=== PATIENT | male | born 2005 | race Two or more races ===

== ENCOUNTER 2024-08-21 11:27 | Emergency (ER) | payer MEDICAID, SELFPAY ==
[2024-08-21 11:28] VITALS: BMI 34.8
[2024-08-21 11:50] VITALS: BP 136/72; PULSE 89; RESP 18; TEMP 36.9; O2SAT 100
--- NOTE | 2024-08-21 11:53 | XR_ITS ---
Examination: Hand, right 3 views Technique: Hand AP, oblique, lateral 3 views Date and time of exam: August 21, 2024, 12:08 PM INDICATIONS: Patient fell today with injury to the hand, hand pain FINDINGS: Acute fracture proximal to mid shaft fourth metacarpal, no significant displacement No opaque foreign body IMPRESSION: Acute fracture fourth metacarpal
[2024-08-21] MEDS: IBUPROFEN TAB 400 MG TABLET 800 MG PO (12:15)
--- NOTE | 2024-08-21 12:33 | EDNOTE_ITS ---
<Statement entered by Jeannine Cates MD - 08/21/24 13:55> As co-signing physician, I was present and available for consult prn. I concur with the plan and care as documented by the midlevel provider. Upper Extremity Injury RME/HPI General Chief Complaint: Fall Stated Complaint: FALL YESTERDAY, HURT R) HAND AT 4TH/5TH DIGITS Time Seen by Provider: 08/21/24 11:29 Arrival date/time: 08/21/24 11:27 19-year-old male presents emergency department today send he was in a bounce house yesterday and injured his right hand patient reports his fourth and fifth digit is where he has pain. There are no other associated symptoms or aggravating factors no other modifying factors, patient denies taking medication before coming to ER today Limitations: no limitations Related Data Previous Rx's ?Medication ?Instructions ?Recorded diphenhydramine HCl 12.5 mg/5 mL 10 ml PO Q4-6HRPRN ## 1 10/09/11 oral liquid (Children's Benadryl Allergy) omeprazole 20 mg capsule,delayed 20 mg PO QDAY ##30 release ibuprofen 600 mg tablet 600 mg PO Q8H PRN fever #14 tabs 07/27/17 hydrocodone 5 mg-acetaminophen 325 1 tab PO BID PRN pa in #10 tabs 08/21/24 mg tablet ibuprofen 800 mg tablet 800 mg PO TID PRN pain #30 t abs 08/21/24 Allergies Allergy/AdvReac Type Severity Reaction Status Date / Time No Known Allergies Allergy Verified 08/21/24 11:30 Review of Systems Review of Systems Systems Reviewed: All systems reviewed, normal except as documented Constitutional Constitutional: Reports system reviewed and no additional complaints, except as documented, Denies fever(s) and Denies headache(s) Eyes Eyes: Reports system reviewed and no additional complaints, except as documented and Denies blurry vision ENT Ears, Nose, Mouth, and Throat: Reports system reviewed and no additional complaints, except as documented, Denies headache(s), Denies nasal congestion and Denies nasal discharge Cardiovascular Cardiovascular: Reports system reviewed and no additional complaints, except as documented, Denies chest pain and Denies dyspnea Respiratory Respiratory: Reports system reviewed and no additional complaints, except as documented, Denies chest congestion, Denies cough and Denies dyspnea Gastrointestinal Gastrointestinal: Reports system reviewed and no additional complaints, except as documented and Denies abdominal pain Musculoskeletal Musculoskeletal: Reports system reviewed and no additional complaints, except as documented, Reports arthralgias, Denies deformity, Reports joint swelling, Denies numbness, Reports stiffness and Denies tingling Integumentary/Breasts Skin/Breast: Reports system reviewed and no additional complaints, except as documented and Denies rash Neurologic Neurologic: Reports system reviewed and no additional complaints, except as documented, Reports as per HPI, Denies headache(s), Denies numbness and Denies tingling Past Medical History Social History SMOKING STATUS: Never smoker ED Exam General Limitations: Present no limitations General appearance: Present alert and in no apparent distress Head Head exam: Present atraumatic, normocephalic and normal inspection Eye Eye exam: Present normal appearance, PERRL and EOMI; Absent conjunctival injection ENT ENT exam: Present normal exam, normal oropharynx and mucous membranes moist Neck Neck exam: Present normal inspection, full ROM and trachea midline Chest Chest inspection: Present normal inspection and symmetric chest wall rise Respiratory Respiratory exam: Present normal lung sounds bilaterally; Absent respiratory distress Cardiovascular Cardiovascular exam: Present regular rate, normal rhythm and normal heart sounds Abdominal Exam Abdominal exam: Present soft and normal bowel sounds Extremities Exam Extremities exam: Present full ROM, tenderness, normal capillary refill and joint swelling Back Exam Back exam: Present normal inspection and full ROM Neurological Exam Neurological exam: Present alert, oriented X3 and CN II-XII intact Psychiatric Psychiatric exam: Present normal affect and normal mood Skin Skin exam: Present warm, dry, intact and normal color Course Quality Measures none Orders Category Date Time Status XR hand comp RT min 3V Stat Exams 08/21/24 11:53 Completed Ibuprofen Tab [Motrin Tab] Med 08/21/24 11:53 Discontinued 800 mg PO X1 ONE Vital Signs Vital signs: Vital Signs Temperature 98.5 F 08/21/24 11:50 Pulse Rate 89 08/21/24 11:50 Respiratory Rate 18 08/21/24 11:50 Blood Pressure 136/72 H 08/21/24 11:50 Pulse Oximetry (%) 100 08/21/24 11:50 Oxygen Delivery Method Room Air 08/21/24 11:50 O2 saturation 90% room air within the limits Procedures -ED Splint Fabrication: Clinician Made Type: Sandrita Reason for Splint: Optimal Positioning and Pain Management Circulation Distal to Splint: Yes Movement Distal to Splint: Yes Senation Distal to Splint: Yes Tolerance: Tolerates Well Extremity Injury MDM Narrative MDM Narrative:: 19-year-old male presents emergency department today send he was in a bounce house yesterday and injured his right hand patient reports his fourth and fifth digit is where he has pain. There are no other associated symptoms or aggravating factors no other modifying factors, patient denies taking medication before coming to ER today On exam patient has tenderness and mild swelling to the right hand dorsal aspect X-ray of the right hand obtained consistent with fracture right hand fourth metacarpal Patient placed in a splint Consultation: Spoke with Dr. bree scales to see the patient as office tomorrow 3 PM Patient data External records reviewed:: [facility] previous records Clinical information provided by:: patient Social determinants that could affect healthcare access:: none Patient has the following chronic illnesses:: None How is presenting disease/condition affected by chronic disease/condition?: no chronic disease Evaluation data The following diagnostics were reviewed and interpreted by me:: radiology exam(s) Lab and/or radiology exams considered but not ordered:: Radiology obtain Interpretation Summary: Reviewed by me Medications / Prescriptions Medications or Prescriptions considered but not ordered:: Given Medication administrations:: Medication Administration History Discontinued Medications Ibuprofen (Ibuprofen Tab 400 Mg Tablet) 800 mg PO X1 ONE Stop: 08/21/24 11:54 Last Admin: 08/21/24 12:15 Dose: 800 mg Documented By: DO Given Consultations Consultation(s) initiated? (list below): Yes Consultation #1 (Physician, Specialty, Details): Dr Jack Diagnosis Upper Extremity Injury Differential Diagnosis: fracture of wrist, finger sprain and other (Metacarpal fracture) Most likely diagnosis given after review of the tests above:: Fracture right hand Admission Indicated Admission indicated?: not indicated Admission Request Was there a request for admission?: No Disposition Plan Disposition Plan: Discharge Discharge Attestation Discharge Attestation: The patient and all family members were given an opportunity to ask questions and understood the discharge instructions. Discharge instructions specifically effects, indications for sooner follow up or return to the emergency department, and the expected course of current diagnosis. Patient condition: Stable Discharge Plan Plan Patient Disposition: HOME (Self Care) Disposition Comment: stable Prescriptions/Referrals Prescriptions/Med Rec: New ibuprofen 800 mg tablet 800 mg PO TID PRN (Reason: pain) Qty: 30 0RF hydrocodone-acetaminophen 5-325 mg tablet 1 tab PO BID MDD 10 PRN (Reason: pain) Qty: 10 0RF No Action diphenhydramine HCl [Children's Benadryl Allergy] 12.5 MG/5 ML liquid 10 ml PO Q4-6HRPRN Qty: 1 0RF omeprazole 20 MG capsule,delayed release(DR/EC) 20 mg PO QDAY Qty: 30 0RF ibuprofen 600 mg tablet 600 mg PO Q8H PRN (Reason: fever) Qty: 14 0RF Referrals: John Jack MD [Physician] - 08/22/24 3:00 pm Problem List Clinical Impression: Fracture of fourth metacarpal bone of right hand Patient/Caregiver Discharge Instructions Education Materials: ED Closed Hand Fracture (Adult) Additional Instructions: Please follow-up tomorrow with orthopedist at 3 PM for worsening symptoms return immediately Print Language: Khmer Stand Alone Forms: Melina Award Info., Patient Portal Info Letter PA/DAIRY [employer] OFFICER Supervising Physician PA/GAYLE Supervising Physician: Dr. CATES
== END 2024-08-21 12:53 | disposition home or self-care (01) ==
PROVIDERS: Emergency Provider Emergency Medicine; PCP Family Medicine
DX: S62.354A Nondisplaced fracture of shaft of fourth metacarpal bone, right hand, initial encounter for closed fracture (principal); W19.XXXA Unspecified fall, initial encounter
CPT/HCPCS: 29125; 73130; 99283; A9270

== ENCOUNTER → 2024-09-13 | Outpatient (CLI) | payer MEDICAID, SELFPAY ==
--- NOTE | 2024-09-13 10:47 | XR_ITS ---
Examination: Hand, right 3 views Technique: Hand AP, oblique, lateral 3 views Date and time of exam: September 13, 2024 1109 hours INDICATIONS: Acute fracture fourth metacarpal on films August 21, 2024 FINDINGS: Partial healing fracture fourth metacarpal with stable and satisfactory alignment IMPRESSION: Partial healing fracture fourth metacarpal with stable and satisfactory alignment
== END | disposition home or self-care (01) ==
PROVIDERS: Referring Provider Orthopaedic Surgery; Visit Provider Orthopaedic Surgery
DX: S62.304D Unspecified fracture of fourth metacarpal bone, right hand, subsequent encounter for fracture with routine healing (principal); X58.XXXD Exposure to other specified factors, subsequent encounter
CPT/HCPCS: 73130

== ENCOUNTER → 2024-10-03 | Outpatient (CLI) | payer MEDICAID, SELFPAY ==
--- NOTE | 2024-10-03 09:20 | XR_ITS ---
Examination: Hand, right 3 views Technique: Hand AP, oblique, lateral 3 views Date and time of exam: October 03, 2024 10:30 AM Comparison August 21, 2024 INDICATIONS: Acute fracture fourth metacarpal August 21, 2024 FINDINGS: Significant healing fracture fourth metacarpal with stable and satisfactory alignment IMPRESSION: Significant healing fracture fourth metacarpal with stable and satisfactory alignment
== END | disposition home or self-care (01) ==
PROVIDERS: PCP Family Medicine; Referring Provider Orthopaedic Surgery; Visit Provider Orthopaedic Surgery
DX: S62.304D Unspecified fracture of fourth metacarpal bone, right hand, subsequent encounter for fracture with routine healing (principal); X58.XXXD Exposure to other specified factors, subsequent encounter
CPT/HCPCS: 73130